=== PATIENT | female | born 1995 | race Hispanic/Latino ===

== ENCOUNTER 2021-07-14 04:03 | Day surgery (SDC) | payer OTHER ==
[2021-07-14 05:13] VITALS: BMI 31.5
[2021-07-14] MEDS ORDERED: hydrALAZINE 20 MG/ML VIAL SLOW IVP PRN (07:31)
[2021-07-14] MEDS ORDERED: Butorphanol Tartrate 1 MG/ML VIAL SLOW IVP PRN (07:31)
== END 2021-07-14 09:44 | disposition home or self-care (01) ==
LOC: CSHLD/OP 04:03
PROVIDERS: ATTEND Family Medicine
DX: O47.03 False labor before 37 completed weeks of gestation, third trimester (principal); O09.293 Supervision of pregnancy with other poor reproductive or obstetric history, third trimester; O99.613 Diseases of the digestive system complicating pregnancy, third trimester; K21.9 Gastro-esophageal reflux disease without esophagitis; Z3A.36 36 weeks gestation of pregnancy
CPT/HCPCS: 96360; 96374; 99283; J0595

== ENCOUNTER 2021-07-31 06:24 | Inpatient (IN) | payer MEDICAID, OTHER, SELFPAY ==
[2021-07-31 08:00] VITALS: BMI 31.0
[2021-07-31] MEDS ORDERED: Lidocaine 1% (PF) 30 ML VIAL SC PRN (08:37)
[2021-07-31] MEDS ORDERED: Promethazine HCl 25 MG/ML VIAL IM PRN ×2 (08:37→09:29)
[2021-07-31] MEDS ORDERED: hydrALAZINE 20 MG/ML VIAL SLOW IVP PRN ×2 (08:37→19:40)
[2021-07-31] MEDS ORDERED: Butorphanol Tartrate 1 MG/ML VIAL SLOW IVP PRN (08:37)
[2021-07-31] MEDS ORDERED: Ondansetron PF 4 MG/2 ML Vial IVP PRN ×3 (08:37→19:40)
[2021-07-31] MEDS ORDERED: Penicillin G Potassium 5 MILL.UNITS in Sodium Chloride 0.9% 100 ML IVPB SCH (08:45)
[2021-07-31] MEDS: Lactated Ringer's 1,000 ML IV SCH ×2 (08:50→10:24)
[2021-07-31] MEDS ORDERED: Promethazine HCl 25 MG/ML VIAL IM SCH (08:50)
[2021-07-31] MEDS ORDERED: Sodium Chloride 0.9% 100 ML ONE (08:53)
[2021-07-31] MEDS ORDERED: Penicillin G Potassium 5 MILL.UNITS VIAL ONE (08:53)
[2021-07-31] MEDS ORDERED: Butorphanol Tartrate 1 MG/ML VIAL ONE (08:56)
[2021-07-31 09:06] LABS: Hemoglobin 12.2 g/dL (12.0-15.5); Mean Corpuscular HGB CONC 33.2 g/dL (32.0-36.0); Mean Corpuscular Hemoglobin 30.7 pg (27.0-33.0); Mean Corpuscular Volume 92.7 fl (81.6-98.3); Mean Platelet Volume 10.2 fl (7.4-10.4); Platelet Count 247 10x3/uL (150-450); RBC Distribution Width 12.7 % (11.5-14.5); Red Blood Cell (RBC) Count 3.97 10x6/uL (3.90-5.03)
[2021-07-31] MEDS ORDERED: Promethazine HCl 25 MG/ML VIAL ONE (09:08)
[2021-07-31] MEDS ORDERED: Acetaminophen 325 MG TAB PO PRN (09:29)
[2021-07-31] MEDS ORDERED: Hydrocerin (Eucerin) Cream 120 gm Jar TOP PRN (09:29)
[2021-07-31] MEDS ORDERED: Naloxone HCl 0.4 mg/ml Vial IVP PRN ×2 (09:29)
[2021-07-31] MEDS ORDERED: diphenhydrAMINE 50 MG/ML VIAL IVP PRN (09:29)
[2021-07-31] MEDS ORDERED: ePHEDrine Sulfate 50 MG/10 ML VIAL SLOW IVP PRN (09:29)
[2021-07-31] MEDS ORDERED: Lactated Ringer's 1,000 ML IV PRN (09:36)
[2021-07-31] MEDS ORDERED: Morphine 4 MG/ML VIAL SLOW IVP SCH (10:15)
[2021-07-31] MEDS ORDERED: Fentanyl 2 mcg/Bup 0.1% Cadd 100 ML ONE (10:32)
[2021-07-31] MEDS ORDERED: Fentanyl 2 mcg/Bupivacaine 0.1% Cassette 100 ML EPIDURAL SCH (11:00)
[2021-07-31] MEDS ORDERED: Communication Order-Pharmacy FS SCH (11:00)
[2021-07-31 11:22] LABS: Hep B Surf Ag Non-Reactive S/CO (NonReactive)
[2021-07-31 11:25] LABS: HBSAg Index 0.19 S/CO (0-0.99)
[2021-07-31 11:50] LABS: Syphilis Antibody Nonreactive (Nonreactive); Syphilis Antibody Index 0.04 S/CO (<1.00 Non-Reactive)
[2021-07-31] MEDS: Penicillin G 2.5 MILL.units 2.5 MILL.UNITS in Premix Bag 1 BAG IVPB SCH ×2 (12:42→16:45)
[2021-07-31] MEDS: NS w/ Oxytocin 30 units 500 ML IV SCH ×2 (13:28→19:14)
[2021-07-31] MEDS ORDERED: Bupivacaine 0.25% HCL 30 ML VIAL ONE (15:22)
[2021-07-31] MEDS ORDERED: Bupivacaine PF 0.5% 30 ML VIAL ONE (15:22)
[2021-07-31] MEDS ORDERED: Phytonadione Neonatal 1 MG/0.5 ML AMP ONE (18:14)
[2021-07-31] MEDS ORDERED: Erythromycin Base 0.5% Oint 1 GM TUBE ONE (18:14)
[2021-07-31] MEDS ORDERED: Hepatitis B Vaccine 10 MCG/0.5 ML SYR ONE (18:15)
[2021-07-31 19:24] LABS: SARS-CoV-2 NAA Rapid Test DETECTED (NotDetected)
[2021-07-31] MEDS ORDERED: diphenhydrAMINE 25 MG CAP PO PRN (19:40)
[2021-07-31] MEDS ORDERED: Benzocaine-Menthol 82.5 ML CAN TOP PRN (19:40)
[2021-07-31] MEDS ORDERED: NS w/ Oxytocin 30 units 500 ML IV SCH (19:40)
[2021-07-31] MEDS ORDERED: Bisacodyl 10 MG SUPP PR PRN (19:40)
[2021-07-31] MEDS ORDERED: Lanolin Ointment 7 GM TUBE TOP PRN (19:40)
[2021-07-31] MEDS ORDERED: Milk Of Magnesia 30 ML UDCUP PO PRN (19:40)
[2021-07-31] MEDS ORDERED: Boostrix 0.5 ML (Tdap) VIAL IM ONE (19:40)
[2021-07-31] MEDS ORDERED: HYDROcodone/Acetaminophen 5/325 mg Tablet PO PRN (19:40)
[2021-07-31] MEDS: Ibuprofen 800 MG TAB PO SCH (22:39)
[2021-07-31] MEDS: Docusate 100 MG CAP PO SCH (22:39)
[2021-08-01] MEDS: Ibuprofen 800 MG TAB PO SCH ×3 (05:49→21:09)
[2021-08-01] MEDS: HYDROcodone/Acetaminophen 5/325 mg Tablet PO PRN ×2 (05:56→11:27)
[2021-08-01] MEDS: Ferrous Sulfate 325 MG TAB PO SCH ×2 (08:38→18:25)
[2021-08-01] MEDS: Prenatal Vitamin 1 TAB PO SCH (08:39)
[2021-08-01] MEDS: Docusate 100 MG CAP PO SCH ×2 (08:39→21:09)
[2021-08-02] MEDS: Ibuprofen 800 MG TAB PO SCH (05:55)
[2021-08-02] MEDS: Ferrous Sulfate 325 MG TAB PO SCH (07:49)
[2021-08-02 08:09] VITALS: BP 127/76; TEMP 97.6
[2021-08-02] MEDS: Prenatal Vitamin 1 TAB PO SCH (09:08)
[2021-08-02] MEDS: Docusate 100 MG CAP PO SCH (09:08)
== END 2021-08-02 12:10 | disposition home or self-care (01) | DRG 805 ==
LOC: CSHLD/OP 06:24 → CSHLD 18:09 → CSHANTE 08-01 06:10
PROVIDERS: ADMIT Family Medicine; ATTEND Family Medicine
PROC: 10E0XZZ Delivery of Products of Conception, External Approach (ICD-10-PCS; principal; 2021-07-31)
PROC: 0KQM0ZZ Repair Perineum Muscle, Open Approach (ICD-10-PCS; 2021-07-31)
DX: O99.824 Streptococcus B carrier state complicating childbirth (principal); U07.1 COVID-19; Z37.0 Single live birth; O98.52 Other viral diseases complicating childbirth; Z3A.38 38 weeks gestation of pregnancy; O70.1 Second degree perineal laceration during delivery
CPT/HCPCS: 36415; 51702; 85027; 86780; 86850; 86900; 86901; 87340; 99285; J0595; J2270; J2540; J2550; J2590; J3490; J7120; S0020; U0002

== ENCOUNTER 2024-05-13 13:33 | Outpatient (CLI) | payer OTHER | END 2024-05-13 13:34 | disposition home or self-care (01) | LOC: CSHULT 13:33 | PROVIDERS: ATTEND Family Medicine | DX: Z34.82 Encounter for supervision of other normal pregnancy, second trimester (principal); Z3A.20 20 weeks gestation of pregnancy | CPT/HCPCS: 76805 ==